=== PATIENT | female | born 1980 | race Hispanic/Latino ===

== ENCOUNTER 2020-09-06 08:08 | Inpatient (IN) | payer BC ==
[2020-09-06 09:03] VITALS: BMI 36.6
[2020-09-06] MEDS ORDERED: Fentanyl 4 mcg/Bup 0.1% Cadd 100 ML ONE (09:41)
[2020-09-06] MEDS ORDERED: HYDROcodone/Acetaminophen 5/325 mg Tablet PO PRN ×2 (10:02→13:56)
[2020-09-06] MEDS ORDERED: NS / Oxytocin 40 units/1000ml 1,000 ML IV PRN (10:02)
[2020-09-06] MEDS ORDERED: Misoprostol 200 MCG TAB PR PRN (10:02)
[2020-09-06] MEDS ORDERED: hydrALAZINE 20 MG/ML VIAL SLOW IVP PRN ×2 (10:02→13:56)
[2020-09-06] MEDS ORDERED: Ibuprofen 800 MG TAB PO PRN (10:02)
[2020-09-06] MEDS ORDERED: Lidocaine 1% (PF) 30 ML VIAL SC PRN (10:02)
[2020-09-06] MEDS ORDERED: Ondansetron PF 4 MG/2 ML Vial IVP PRN ×2 (10:02→13:56)
[2020-09-06] MEDS ORDERED: Butorphanol Tartrate 1 MG/ML VIAL SLOW IVP PRN (10:02)
[2020-09-06] MEDS ORDERED: Methylergonovine 0.2 MG/ML VIAL IM PRN (10:02)
[2020-09-06] MEDS ORDERED: NS w/ Oxytocin 30 units 500 ML ONE (10:04)
[2020-09-06] MEDS ORDERED: Lactated Ringer's 1,000 ML IV SCH ×2 (10:15)
[2020-09-06 10:18] LABS: Hemoglobin 12.3 g/dL (12.0-16.0); Mean Corpuscular HGB CONC 32.8 g/dL (32.0-36.0); Mean Corpuscular Hemoglobin 28.9 pg (27.0-31.0); Mean Corpuscular Volume 88.3 fL (78.0-98.0); Mean Platelet Volume 7.7 fL (7.4-10.4); Platelet Count 316 thou/uL (130-400); Red Blood Cell (RBC) Count 4.25 mill/uL (4.20-5.40); White Blood Cell (WBC) Count 17.1 thou/uL (4.8-10.8)
[2020-09-06] MEDS ORDERED: Morphine PF 10 MG/10 ML VIAL ONE (10:25)
[2020-09-06] MEDS ORDERED: Oxytocin 10 UNITS/ML VIAL ONE (10:25)
[2020-09-06] MEDS ORDERED: Phenylephrine 40 MG/NS 250 ML 250 ML ONE ×2 (10:25→12:31)
[2020-09-06] MEDS ORDERED: Dexamethasone 4 mg/ml Vial ONE (10:35)
[2020-09-06] MEDS ORDERED: Ondansetron PF 4 MG/2 ML Vial ONE (10:35)
[2020-09-06] MEDS ORDERED: Bicitra 30 ML UDCUP ONE (10:44)
[2020-09-06] MEDS ORDERED: Azithromycin 500 MG VIAL ONE (10:44)
[2020-09-06 10:54] LABS: HBSAg Index 0.18 S/CO (0-0.99); Hep B Surf Ag Non-Reactive S/CO (NonReactive); Syphilis Antibody Nonreactive (Nonreactive); Syphilis Antibody Index 0.07 S/CO (<1.00 Non-Reactive)
[2020-09-06] MEDS ORDERED: PROPOFOL 20 ML ONE ×3 (10:54→12:21)
[2020-09-06 11:11] LABS: Actual Bicarbonate (HCO3a) 24.5 mEq/L (22-28); Actual Bicarbonate (HCO3v) 22 mEq/L (22-28); Analyzer IN Cardio OR; Base Excess -2.9 mEq/L (-2.0 to +3.0); Base Excess (BEa) -3.1 mEq/L (-2.0 to +3.0); pH (Cord, venous) 7.36 (7.32-7.43)
[2020-09-06] MEDS ORDERED: Misoprostol 200 MCG TAB ONE ×3 (11:36→11:47)
[2020-09-06] MEDS ORDERED: Methylergonovine 0.2 MG/ML VIAL ONE ×2 (11:36→11:47)
[2020-09-06] MEDS ORDERED: Carboprost 250 MCG/ML AMP ONE (11:47)
[2020-09-06] MEDS ORDERED: Tranexamic Acid 1,000 MG/10 ML VIAL ONE ×3 (11:48→13:05)
[2020-09-06] MEDS ORDERED: Succinylcholine 200 MG/10 ml SYRINGE FS ONE (12:21)
[2020-09-06] MEDS ORDERED: PHENYLEPHRINE-NS 100 MCG/ML 10 ML SYRINGE ONE ×2 (12:30→12:57)
[2020-09-06 12:32] LABS: PTT 31.9 sec (22.9-36.1); Prothrombin Time 13.6 sec (12.0-14.7)
[2020-09-06] MEDS ORDERED: Rocuronium Bromide 50 MG/5 ML VIAL ONE (12:41)
[2020-09-06 12:42] LABS: Hemoglobin 9.9 g/dL (12.0-16.0); Mean Corpuscular HGB CONC 33.2 g/dL (32.0-36.0); Mean Corpuscular Hemoglobin 30.2 pg (27.0-31.0); Mean Corpuscular Volume 91.1 fL (78.0-98.0); Mean Platelet Volume 7.9 fL (7.4-10.4); Platelet Count 302 thou/uL (130-400); RBC Distribution Width 11.8 % (11.5-14.5); Red Blood Cell (RBC) Count 3.28 mill/uL (4.20-5.40); White Blood Cell (WBC) Count 28.5 thou/uL (4.8-10.8)
[2020-09-06] MEDS ORDERED: CEFAZOLIN 1 GM VIAL ONE (13:14)
[2020-09-06] MEDS ORDERED: Calcium Chloride 1 GM/10 ML Abboject SYRINGE ONE ×2 (13:25→13:35)
[2020-09-06] MEDS ORDERED: Sodium Chloride 0.9% 10 ML ONE (13:35)
[2020-09-06 13:38] LABS: Actual Bicarbonate (HCO3a) 15.9 mEq/L (22-28); Base Excess (BEa) -10.4 mEq/L (-2.0 to +3.0); Carboxyhemoglobin (COHb) 0.2 gm% (0.0-3.0); Hemoglobin (Hb) 11.1 g/dL (12.0-16.0); O2 Tension (PaO2), arterial 190.4 mmHg (80.0-100.0); pH, Arterial 7.25 (7.35-7.45)
[2020-09-06 13:39] LABS: Analyzer IN Cardio OR; Calcium, Ionized (arterial) 0.78 mmol/L (1.12-1.30); Potassium - ABG Lab 5.25 mmol/L (3.70-5.30); Puncture Site Arterial Line
[2020-09-06] MEDS ORDERED: Vecuronium 10 MG VIAL ONE (13:41)
[2020-09-06 13:42] LABS: #Lymphocytes 1.1 thou/uL (1.20-3.40); #Monocytes 0.7 thou/uL (0.11-0.59); #Neutrophils 18.3 thou/uL (1.40-6.50); %Basophils 0.1 % (0.0-1.0); %Eosinophils 0.2 % (0.0-10.0); %Lymphocytes 5.5 % (21.0-51.0); %Monocytes 3.2 % (0.0-10.0); Hemoglobin 10.5 g/dL (12.0-16.0); Mean Corpuscular HGB CONC 31.7 g/dL (32.0-36.0); Mean Corpuscular Hemoglobin 28.6 pg (27.0-31.0); Mean Corpuscular Volume 90.4 fL (78.0-98.0); Mean Platelet Volume 7.4 fL (7.4-10.4); Platelet Count 251 thou/uL (130-400); RBC Distribution Width 12.7 % (11.5-14.5); Red Blood Cell (RBC) Count 3.67 mill/uL (4.20-5.40); White Blood Cell (WBC) Count 20.1 thou/uL (4.8-10.8)
[2020-09-06] MEDS ORDERED: Midazolam HCl 2 mg/2 ml Vial ONE (13:42)
[2020-09-06] MEDS ORDERED: Tranexamic Acid 1,000 MG in Sodium Chloride 0.9% 250 ML 250 ML IVPB SCH (13:45)
[2020-09-06] MEDS ORDERED: Morphine 4 MG/ML VIAL SLOW IVP PRN (13:56)
[2020-09-06] MEDS ORDERED: Lanolin Ointment 7 GM TUBE TOP PRN (13:56)
[2020-09-06] MEDS ORDERED: Simethicone Chewable 80 MG TAB PO PRN (13:56)
[2020-09-06] MEDS ORDERED: NS / Oxytocin 40 units/1000ml 1,000 ML IV SCH (13:56)
[2020-09-06] MEDS ORDERED: diphenhydrAMINE 25 MG CAP PO PRN (13:56)
[2020-09-06] MEDS ORDERED: Promethazine HCl 25 MG/ML VIAL IM PRN (13:56)
[2020-09-06] MEDS ORDERED: Acetaminophen 325 MG TAB PO PRN (13:56)
[2020-09-06] MEDS ORDERED: CEFAZOLIN 2 GM in Premix Bag 1 BAG IVPB SCH (14:00)
[2020-09-06] MEDS ORDERED: Morphine 4 MG/ML VIAL ONE ×2 (14:08→15:29)
[2020-09-06] MEDS ORDERED: Sodium Bicarb 50 MEQ/50 ML Abboject 8.4% SYRINGE ONE (14:10)
[2020-09-06 14:21] LABS: ALT (SGPT) 11 U/L (8-55); AST (SGOT) 21 U/L (5-34); Albumin 2.3 g/dL (3.5-5.0); Alkaline Phosphatase 86 U/L (40-110); Anion Gap 13 mmol/L (10-20); BUN (Urea Nitrogen) 6 mg/dL (7.0-18.7); Bilirubin, Total 0.5 mg/dL (0.2-1.2); Calc. Creatinine Clearance 190 mL/min (70-130); Calcium 10.9 mg/dL (7.8-10.44); Carbon Dioxide 16 mmol/L (22-29); Chloride 112 mmol/L (98-107); Globulin 2.5 g/dL (2.4-3.5); Glucose 145 mg/dL (70-105); Protein, Total 4.8 g/dL (6.0-8.3); Sodium 136 mmol/L (136-145)
[2020-09-06 14:38] LABS: Actual Bicarbonate (HCO3a) 21.6 mEq/L (22-28); CO2 Tension 37.1 mmHg (35.0-45.0); Calcium, Ionized (arterial) 1.06 mmol/L (1.12-1.30); Carboxyhemoglobin (COHb) 0.7 gm% (0.0-3.0); Hemoglobin (Hb) 11.6 g/dL (12.0-16.0); O2 Tension (PaO2), arterial 78.5 mmHg (80.0-100.0); Potassium - ABG Lab 4.14 mmol/L (3.70-5.30); pH, Arterial 7.38 (7.35-7.45)
[2020-09-06] MEDS ORDERED: Sodium Chloride 0.9% 30 ML ONE (15:01)
[2020-09-06 15:20] LABS: ALV-art Gradient 231.625 mmHg (0-20); Puncture Site Arterial Line
[2020-09-06] MEDS ORDERED: SUGAMMADEX SODIUM 500 MG/5 ML VIAL ONE (15:45)
--- NOTE | 2020-09-06 15:46 | PRG ---
DATE OF SERVICE: 09/06/2020 PRIMARY OB: Preeti Salazar MD CHIEF COMPLAINT: Vaginal bleeding. HISTORY OF PRESENT ILLNESS: The patient is a 39-year-old female who presented today to Labor and Delivery with spontaneous rupture of membranes at term and laboring. She was found to be breech and was taken back for a stat by her primary OB, Dr. Salazar. I was called to the recovery room shortly after the surgery was completed with concerns of vaginal bleeding. By that time, there was an estimated blood loss of nearly 2 L with 1350 mL in recovery, blood loss about 600 mL in the OR. On evaluation, the patient was noted to have fairly brisk vaginal bleeding. She had been given multiple uterotonics without success. On bimanual exam, the patient was noted to have a firm uterus in lower uterine segment. Cowart catheter was in place. She continued to have bleeding. A speculum was used with some difficulty with . The cervix was identified and suspicion for cervical laceration was made with 2 ring forceps were applied at the edge of and the decision was made to patient back to the operating room for better evaluation and repair. By that time, Dr. Salazar that her primary OB was on site and took over the role of primary surgeon. Please refer to her operative note for complete details. By the time, the patient was taken to the operating room, 2 units of packed red blood cells were in the room to be administered and 2 units were being prepared down in the blood bank. Again for complete details, please refer to Dr. Salazar's operative note. I functioned as her expanded function dental assistant for the cervical laceration repair and the exploratory laparotomy of the just performed . Job ID: [id number]
--- NOTE | 2020-09-06 15:52 | RAD ---
Exam: Chest one view HISTORY:Status post ET tube placement Comparison: None FINDINGS: Lines and tubes: Endotracheal tube at the level of clavicles Cardiac silhouette: Normal Aorta: Unremarkable Pulmonary vessels: Normal Costophrenic angles: Clear LUNGS: No masses or consolidation. Pneumothorax: None Osseous abnormalities: None IMPRESSION: No acute cardiopulmonary process.
[2020-09-06 16:31] LABS: Base Excess (BEa) -3.5 mEq/L (-2.0 to +3.0); Calcium, Ionized (arterial) 1.09 mmol/L (1.12-1.30); Carboxyhemoglobin (COHb) 1.3 gm% (0.0-3.0); Hemoglobin (Hb) 12.2 g/dL (12.0-16.0); O2 Tension (PaO2), arterial 105.3 mmHg (80.0-100.0); Potassium - ABG Lab 3.66 mmol/L (3.70-5.30); pH, Arterial 7.38 (7.35-7.45)
[2020-09-06 16:33] LABS: Puncture Site Arterial Line
[2020-09-06] MEDS ORDERED: Carboprost 250 MCG/ML AMP IM SCH (17:15)
[2020-09-06] MEDS ORDERED: Tranexamic Acid 1,000 MG in Sodium Chloride 0.9% 100 ML IVPB SCH (17:15)
[2020-09-06] MEDS ORDERED: Methylergonovine 0.2 MG/ML VIAL IM SCH (17:15)
[2020-09-06] MEDS ORDERED: Misoprostol 200 MCG TAB PR SCH (17:15)
[2020-09-06 17:37] LABS: PTT 29.3 sec (22.9-36.1); Prothrombin Time 13.7 sec (12.0-14.7)
[2020-09-06] MEDS: Sodium Chloride 0.9% 1,000 ML IV SCH (18:24)
[2020-09-06] MEDS: Lactated Ringer's 1,000 ML IV SCH (18:26)
[2020-09-06 23:48] LABS: SARS-CoV-2 PCR by NAA Not Detected (NotDetected)
--- NOTE | 2020-09-07 01:42 | OP ---
DATE OF PROCEDURE: 09/06/2020 PREOPERATIVE DIAGNOSIS: A 39-year-old white female, G2, now P2, status post approximately 45 minutes from a primary low transverse section without extension with continued hemorrhage. POSTOPERATIVE DIAGNOSES: 1. A 39-year-old white female, G2, now P2, status post approximately 45 minutes from a primary low transverse section without extension with continued hemorrhage. 2. Lower uterine segment atony and a cervical laceration. DROP CLIPPER SURGEON: Emilio Paige MD SECOND DROP CLIPPER: Dr. Rios, [facility] residency program. ANESTHESIA: The patient had residual spinal block in place and then underwent a general endotracheal anesthetic agent. HEMORRHAGE BLOOD TRANSFUSION RESUSCITATION: Per Anesthesia Service. TOTAL BLOOD PRODUCTS RECEIVED: 5 units of packed red cells, 3 units of FFP and 1 pack of platelets per mass transfusion protocol. QUANTITATIVE BLOOD LOSS: 3600 mL. PROCEDURES PERFORMED: 1. Exam under anesthesia of the vagina with repair of cervical laceration appeared to be at the 3 o'clock position and at 7 o'clock. 2. Exploratory laparotomy with opening of the hysterotomy incision and inspection of the lower uterine segment with placement of TXA and Bakri balloon with re-closure. DESCRIPTION OF PROCEDURE: The patient approximately 20 minutes post arrival to the recovery room and was noted to have increased vaginal bleeding, which was not noticed initially at the time in the operating room or during the section procedure. She was given usual PPH medications and the cart was at the bedside. She received initially one amp of Hemabate. She continued to have bleeding, although her fundus appeared firm on exam. She then got a round of Methergine and Cytotec 800 mcg rectally with continued bleeding. Dr. Paige, the OB hospitalist was at the bedside. After the further medications were utilized, then she had continued to have heavy brisk bleeding that was noted to be from the cervix or supracervical. Dr. Paige called me at my office as I had just left from the section and expresses concern for the continued bleeding, which was unresponsive. The typical hemorrhage protocol including 1 g of TXA given IV along with the other medications as previously stated. He felt there may be some evidence of a cervical laceration; therefore, Anesthesia was summonsed. Blood bank was also notified and 2 units of packed cells had been ready called for. She was taken back to the operating room and we placed her on the operative bed and placed her in dorsal lithotomy position initially. A side-arm speculum was placed in the vagina and we were able to grasp the cervix with ring forceps and appeared to be an active bleeding at approximately the 3 o'clock position of the cervix from the patient and stable extension was noted. This upper apex was grasped with ring forceps on each side and with vaginal retractors by my assistants, I was able to do running locking #1 chromic suture. This was tagged. Also, we ran the cervix appeared to be another area of bleeding at around 7 o'clock on the cervix and the apex of the torn area was grasped, and a running locking suture of #1 chromic was also placed and this was tagged. We inspected any other areas of the cervix. There was no other obvious extension. Unfortunately, the patient continued to have bleeding that was brisk that was supracervical to the cervical laceration repairs. Due to this finding in that the patient already had undergone the round of usual atony medications the patient had, we decided to re-explore the abdomen to ensure there was no ongoing bleeding from the hysterotomy sites. The patient had received a general endotracheal anesthetic agent at this time. Her abdomen was re-prepped. We quickly took out the staple line from the recent surgery, and then the skin was opened and then the fascia line was opened with the sutures of the 0 PDS being cut. There was really no excessive amount of subfascial bleeding seen. On entry of the subcu and then entry into the muscle bellies, there was no obvious bleeding in the muscle bellies per se. We opened the abdominal cavity and there was an excessive amount of blood in the pelvis. The Andrez O retractor was placed, and the hysterotomy incision was inspected and it appeared to be hemostatic with no active bleeding. Due to the fact this supracervical bleeding was noted to persist, we did open the suture line of the hysterotomy, which enabled us to look distal to the hysterotomy repair towards the vaginal direction. When we did that, we noted that area there in the lower uterine segment to be very oozy and some active bleeding. I did throw few sutures to some active bleeder sites, this was a #1 chromic suture and some running locking sutures over that area with some decrease in the bleeding, but generalized oozing and friability of this region was noted. A Bakri balloon had been noted in the OR and then I had my surgical forceps fabricator used a syringe of the diluted 1 g of TXA, which we placed exactly into the lower uterine region where the oozing and continued bleeding was noted. After the block, the balloon had been placed. The end of it had been dragged down into the vagina. The TXA 1 g of that solution was placed and then we reclosed the hysterotomy incision with a running locking #1 Monocryl suture. Again, the hemostasis on the hysterotomy site was noted to be satisfactory. We then irrigated the pelvis copiously and suctioned this. There was no evidence of any other active bleeding inside the intraperitoneal cavity or the muscle beds prior to closure of the fascia. Then, we reclosed the fascia with 0 PDS suture x2 in running continuous fashion. Subcutaneous tissue was irrigated, noted to be hemostatic and the skin was then reapproximated with amy. I inspected prior to inflating the Bakri, there was essentially no active bleeding being noted from the vagina and the Bakri balloon somewhat had not been inflated. Therefore, I removed Bakri and we observe no further vaginal bleeding incurred. The patient was then awakened from anesthesia and then taken to the PACU, where she was continued to be intubated and would finish the transfusion protocols per the anesthesia service. Job ID: [id number]
[2020-09-07] MEDS: Ferrous Sulfate 325 MG TAB PO SCH ×3 (04:30→18:28)
[2020-09-07] MEDS: Ibuprofen 800 MG TAB PO SCH ×4 (04:30→21:32)
[2020-09-07] MEDS: Docusate Calcium (SURFAK) 240 MG CAP PO SCH ×4 (04:30→21:32)
[2020-09-07] MEDS: Sodium Chloride 0.9% 1,000 ML IV SCH ×2 (04:31→09:57)
[2020-09-07 07:20] LABS: Hemoglobin 9.6 g/dL (12.0-16.0); Mean Corpuscular Hemoglobin 30.5 pg (27.0-31.0); Mean Corpuscular Volume 87.2 fL (78.0-98.0); Mean Platelet Volume 7.5 fL (7.4-10.4); Platelet Count 204 thou/uL (130-400); RBC Distribution Width 13.1 % (11.5-14.5); Red Blood Cell (RBC) Count 3.15 mill/uL (4.20-5.40); White Blood Cell (WBC) Count 18.2 thou/uL (4.8-10.8)
--- NOTE | 2020-09-07 08:16 | PDOC.EVN ---
Event Note - Event Note Event Note: Feels well this Am. Baby doing well. Explained course of events from yesterday...No nausea. Adequate pain control.. O: AFVSS. HCT 27.5...Plateltes 200k+. U/O 1950 past 12 hours. ABD:soft non distended. Incision c/d/I A/P: Post op day 1 from c/s with rexploration and EUA after PPH due to lower uterine segment atony. Massive transfusion. Has recovered well. Normal vitals, good urine output, good pain control; Ok to transfer to post floor.
[2020-09-07] MEDS ORDERED: hydrALAZINE 20 MG/ML VIAL SLOW IVP PRN (08:50)
[2020-09-07] MEDS ORDERED: Lanolin Ointment 7 GM TUBE TOP PRN (08:50)
[2020-09-07] MEDS ORDERED: Ondansetron PF 4 MG/2 ML Vial IVP PRN (08:50)
[2020-09-07] MEDS ORDERED: Acetaminophen 325 MG TAB PO PRN (08:50)
[2020-09-07] MEDS ORDERED: Bisacodyl 10 MG SUPP PR PRN (08:50)
[2020-09-07] MEDS ORDERED: Prenatal Vitamin 1 TAB PO SCH (09:00)
[2020-09-07] MEDS: Simethicone Chewable 80 MG TAB PO PRN (09:35)
[2020-09-07] MEDS: Lactated Ringer's 1,000 ML IV SCH (09:57)
[2020-09-07] MEDS: HYDROcodone/Acetaminophen 5/325 mg Tablet PO PRN ×3 (11:14→22:31)
[2020-09-07] MEDS ORDERED: Measles/Mumps/Rubella 10 MCG/0.5 ML VIAL SC ONE (13:56)
[2020-09-07] MEDS ORDERED: Varicella virus, LIVE 0.5 ML VIAL SC ONE (13:56)
[2020-09-07] MEDS ORDERED: Adacel (T-DAP) 0.5 ML SYRINGE IM ONE (13:56)
[2020-09-08 05:24] VITALS: TEMP 97.8
[2020-09-08] MEDS: Ibuprofen 800 MG TAB PO SCH (05:25)
[2020-09-08 05:39] LABS: Hemoglobin 9.1 g/dL (12.0-16.0); Mean Corpuscular HGB CONC 33.9 g/dL (32.0-36.0); Mean Corpuscular Hemoglobin 29.7 pg (27.0-31.0); Mean Corpuscular Volume 87.6 fL (78.0-98.0); Mean Platelet Volume 7.7 fL (7.4-10.4); Platelet Count 203 thou/uL (130-400); Red Blood Cell (RBC) Count 3.06 mill/uL (4.20-5.40)
--- NOTE | 2020-09-08 08:04 | PDOC.PP ---
Post Progress Note Post Day #: 2 Subjective: Would like to go home PO intake tolerated: yes Flatus: yes Ambulation: yes Vital Signs (12 hours) Temp Pulse Resp BP 09/08/20 05:05 97.8 F 85 16 104/56 L 09/07/20 23:45 98.1 F 76 16 102/55 L Weight Weight 213 lb - Physical Examination Abdominal: + bowel sounds, no distention, appropriately TTP Extremities: negative homans (B) Result Diagrams: 09/08/20 05:24 09/06/20 13:25 Additional Labs: Post Labs Hep Bs Antigen Non-Reactive S/CO (NonReactive) 09/06/20 09:47 Blood Type A POSITIVE 09/06/20 09:47 - Assessment/Plan Doing well post op day2. Ambulating, voiding, tolerating diet. No orthostatic sxs. D/c home . F/u post op day 7 and 6 weeks.
[2020-09-08] MEDS: Ferrous Sulfate 325 MG TAB PO SCH (08:26)
[2020-09-08] MEDS: Simethicone Chewable 80 MG TAB PO PRN (08:26)
[2020-09-08] MEDS: Docusate Calcium (SURFAK) 240 MG CAP PO SCH (08:26)
[2020-09-08 08:32] VITALS: BP 90/51
--- NOTE | 2020-09-08 09:00 | DIS ---
DATE OF ADMISSION: 09/06/2020 DATE OF DISCHARGE: 09/08/2020 DIAGNOSES: 1. A 39-year old, G2, P1, in active labor at 38 weeks. 2. Buddy breech presentation, in active phase. 3. Advanced maternal age. 4. delivery due to breech presentation. 5. hemorrhage with uterine atony and suspected small cervical laceration. 6. Acute blood loss anemia due to hemorrhage. 7. Blood transfusion. 8. Re-exam under anesthesia vaginally and also re-exploration of abdomen post section. SUMMARY OF HOSPITAL COURSE: Ms. Steve is a 39-year-old, G2, P1, who presented in active labor on September 06. Initially, she was felt to be vertex during laboring process, and I was called for possible imminent delivery when the patient was approximately 9 cm. On my examination, she was noted to be in buddy breech presentation and she was taken back for a section. She received a spinal block and proceeded with primary-low transverse section delivery of a viable female . Her quantitative blood loss during the procedure was 660 mL. During the recovery room process, the patient was noted to have, started having heavier than usual vaginal bleeding approximately 20 minutes on arrival. We went through the usual protocol for hemorrhage with massage and hemorrhage uterotonics. Dr. Paige, the OB hospitalist was present at the bedside. The vaginal bleeding was unresponsive to these measures and the patient had lost approximately 1.5 L of blood and then transfusion protocol was initiated. Dr. Paige and myself took the patient back to the operating room and on exam under anesthesia, she felt she may have a cervical laceration. We inspected the cervix. There was some area of bleeding at the 3 o'clock position, which was sutured, but the patient continued to have supracervical bleeding. The general anesthetic agent had been replaced with the working spinal, Anesthesia was still on board. We reopened her abdomen and inspected the abdomen. There was not a significant amount of peritoneal blood. The hysterotomy incision was also noted to be dry at that time. She continued to have vaginal bleeding from below on inspection by an OR staff. We opened the hysterotomy incision just to inspect the lower uterine segment. There was a lot of oozing in this area and we oversewed some oozing sites, but continued welling up, so therefore, I decided to place directly solution of tranexamic acid and Bakri balloon. Then, the patient was reclosed, and fortunately, the bleeding essentially resolved. She did receive 5 units of packed red cells, 3 units of FFP, and one pack of platelets during the mass transfusion protocol. The patient was ventilated and was recovered in the PACU and then she did very well. She was extubated several hours after the surgery had been completed. She had maintained excellent urine output over 1000 mL/h with stable vital signs. Immediate post transfusion hemoglobin was 9.5. Once she was extubated, she was transferred back up to the LICU in Labor and Delivery and observed overnight. Again, she maintained excellent urine output, no tachycardia, vital signs remained stable, and she was actually able to hold her daughter that evening. She has maintained a stable hematocrit at 26.8%. Now, she is postop day 2, ambulating, voiding, and tolerating diet without difficulty. She has good pain control with ibuprofen and Tylenol with minimal narcotic use. She is desiring to be discharged home later today and has a followup on postop day 7 for staple removals and in 6 weeks. DISCHARGE MEDICATIONS: Will be; 1. [place] 5 mg q.6 hours p.r.n. pain. 2. Fehv-tih-bnzteru ibuprofen 800 mg q.8 hours. 3. Tylenol 1000 mg q.6 as needed. 4. She is also instructed to use a daily iron supplement in addition to vitamins. Job ID: [id number]
--- NOTE | 2020-09-08 11:01 | OP ---
DATE OF PROCEDURE: 09/06/2020 PREOPERATIVE DIAGNOSES: 1. A 39-year-old [place] female, G2, P1, at 37-38 weeks, in active labor. 2. Noted to be buddy breech presentation at 9 cm. POSTOPERATIVE DIAGNOSES: 1. A 39-year-old [place] female, G2, P1, at 37-38 weeks, in active labor. 2. Noted to be buddy breech presentation at 9 cm. PROCEDURE PERFORMED: Emergent primary section. ASSISTANTS: Dr Rios, [facility] residency, and Marlen Jacobson, OR collision repair technician. ANESTHESIA: Spinal block. ESTIMATED BLOOD LOSS: QBL from the surgery, 660 mL. ANTIBIOTICS: 2 g Ancef and Zithromax on-call to OR. FINDINGS: 1. Baby was buddy breech presentation. weight 5 pounds 7 ounces. Initial at one minute was 1 and at five minutes was 9. 2. Normal-appearing uterus, tubes, and ovaries. 3. Cowart catheter, clear urine present postprocedure. DESCRIPTION OF OPERATIVE PROCEDURE: Ms. Steve is a 39-year-old [place] female, who presented in labor with ruptured membranes and initially was 4 cm on arrival. Her labor progressed and I was called for her being at 9 cm and feeling pushy as described. She had not yet received her epidural as she had progressed rapidly. When I evaluated the patient, she was noted on my examination to be a buddy breech presentation. Once this was confirmed, I immediately had the Anesthesia notified, and we took the patient back to the OR suite. We did have time to place a spinal block and then we placed the patient in the supine position. She was prepped and draped and SCDs and Cowart catheter were placed. At this time, a Pfannenstiel incision was made in the lower abdomen and was carried down the fascia. Fascia was nicked in the midline. Fascial incision was extended bilaterally using curved Beal scissors. Rectus fascia was then dissected superiorly and inferiorly off the rectus muscle belly. The rectus muscle belly was divided in midline. Peritoneal cavity was entered. Andrez O retractor was placed. A vesicouterine peritoneal bladder flap was then made in usual fashion. A 2 cm hysterotomy incision was made in the lower uterine segment. This was extended via finger fractionation. The buttocks of the baby were easily delivered through the hysterotomy incision and each leg was atraumatically delivered. I wrapped the torso of the baby in a moistened sponge and with a each arm was easily delivered. The baby's head was then delivered by flexion with the use of the Mauriceau maneuver. There was some tightness noted with the delivery of the head and therefore I used the bandage scissors to extend the incision on the right side of the uterus and widening the hysterotomy to aid in delivery of the head. Continued flexion of the neck was protected with the Mauriceau maneuver which then we were able to get the baby's head atraumatically delivered. The mouth and nares of the were bulb suctioned on the abdomen. The baby was somewhat stunned from the delivery part. After the cord was doubly clamped and cut, she was handed quickly to the pediatric team in attendance and they resuscitated her. The usual cord blood and cord gas were obtained. Placenta was manually extracted and the uterus was externalized. The uterus was curetted of any remaining placental fragments with dry laparotomy sponge. We then closed the hysterotomy incision in a running locking fashion with #1 Monocryl suture in a double-layer closure. Good hemostasis was confirmed and the uterus had been returned back to the abdomen. The pelvis was copiously irrigated. Again, hysterotomy incision was noted to be hemostatic. Once this had been completed, the rectus muscle layer was inspected and noted to be hemostatic and the fascia was then closed with 0 PDS suture x2 in a running continuous fashion. Skin was closed with amy. The surgery was terminated. No anesthetic or surgical complications occurred. The patient was then transferred to the recovery room in usual fashion. Job ID: [id number]
== END 2020-09-08 12:45 | disposition home or self-care (01) | DRG 787 ==
LOC: L&D/OP 08:08 → L&D 10:34 → PACU-TCU 14:51 → L&D 18:20 → 3SW 09-07 09:18
PROVIDERS: ADMIT Obstetrics & Gynecology; ATTEND Obstetrics & Gynecology
PROC: 10D00Z1 Extraction of Products of Conception, Low, Open Approach (ICD-10-PCS; principal; 2020-09-06)
PROC: 0W3F0ZZ Control Bleeding in Abdominal Wall, Open Approach (ICD-10-PCS; 2020-09-06)
PROC: 30233L1 Transfusion of Nonautologous Fresh Plasma into Peripheral Vein, Percutaneous Approach (ICD-10-PCS; 2020-09-06)
PROC: 30233N1 Transfusion of Nonautologous Red Blood Cells into Peripheral Vein, Percutaneous Approach (ICD-10-PCS; 2020-09-06)
PROC: 30233R1 Transfusion of Nonautologous Platelets into Peripheral Vein, Percutaneous Approach (ICD-10-PCS; 2020-09-06)
DX: O32.1XX0 Maternal care for breech presentation, not applicable or unspecified (principal); O72.1 Other immediate postpartum hemorrhage; D62 Acute posthemorrhagic anemia; O71.3 Obstetric laceration of cervix; Z20.822 Contact with and (suspected) exposure to COVID-19; O90.81 Anemia of the puerperium; Z3A.38 38 weeks gestation of pregnancy; Z37.0 Single live birth
CPT/HCPCS: 36415; 36430; 51702; 71045; 80053; 82805; 85027; 85384; 85610; 85730; 86780; 86850; 86900; 86901; 87340; 87635; 94002; J0690; J1100; J2210; J2250; J2270; J2405; J2590; J2704; J3490; P9016; P9035; P9048; U0003; U0005